=== PATIENT | male | born 1970 | race Caucasian/White ===

== ENCOUNTER 2020-01-18 16:51 | Emergency (ER) | payer SELFPAY ==
[~2020-01-18 16:51] MED LIST: Iopamidol-370 76% 500 ML 1 ML ONE
[2020-01-18 17:14] LABS: %Lymphocytes 26.5 % (21.0-51.0); %Monocytes 7.5 % (0.0-10.0); %Neutrophils 61.9 % (42.0-75.0); Hemoglobin 14.3 g/dL (14.0-18.0); Mean Corpuscular HGB CONC 33.1 g/dL (32.0-36.0); Mean Corpuscular Hemoglobin 30.1 pg (27.0-31.0); Mean Corpuscular Volume 90.8 fL (78.0-98.0); Mean Platelet Volume 7.1 fL (7.4-10.4); Platelet Count 350 thou/uL (130-400); RBC Distribution Width 12.8 % (11.5-14.5); Red Blood Cell (RBC) Count 4.75 mill/uL (4.70-6.10); White Blood Cell (WBC) Count 11.2 thou/uL (4.8-10.8)
[2020-01-18 17:15] LABS: #Basophils 0.1 thou/uL (0.0-0.2); #Eosinphils 0.4 thou/uL (0.0-0.7); #Monocytes 0.8 thou/uL (0.11-0.59); #Neutrophils 6.9 thou/uL (1.40-6.50); %Basophils 0.9 % (0.0-1.0); %Eosinophils 3.2 % (0.0-10.0)
[2020-01-18] MEDS ORDERED: Ondansetron PF 4 MG/2 ML Vial ONE (17:17)
[2020-01-18] MEDS ORDERED: Morphine 4 MG/ML VIAL ONE (17:17)
[2020-01-18 17:40] LABS: ALT (SGPT) 20 U/L (8-55); AST (SGOT) 14 U/L (5-34); Alkaline Phosphatase 112 U/L (40-110); Anion Gap 12 mmol/L (10-20); BUN (Urea Nitrogen) 21 mg/dL (8.9-20.6); Bilirubin, Total 0.4 mg/dL (0.2-1.2); Calc. Creatinine Clearance 0 mL/min (70-130); Calcium 8.8 mg/dL (7.8-10.44); Carbon Dioxide 27 mmol/L (22-29); Chloride 101 mmol/L (98-107); Estimated GFR-MDRD 77; Globulin 3.1 g/dL (2.4-3.5); Glucose 149 mg/dL (70-105); Potassium 4.2 mmol/L (3.5-5.1); Protein, Total 7.1 g/dL (6.0-8.3); Sodium 136 mmol/L (136-145)
--- NOTE | 2020-01-18 17:54 | CT ---
EXAM: CT ABDOMEN AND PELVIS HISTORY: Dominant pain COMPARISON: None. Procedure: Multiple contiguous axial images were obtained and a CT of the abdomen and pelvis with IV contrast. C oronal reformats were performed. FINDINGS: Lower Chest: Minimal scarring and atelectasis in the lower lobes and lingula Vessels: Normal caliber aorta. Heart: Normal heart size. No significant pericardial fluid Abdomen: Portal vein:Patent Gallbladder: No calcified gallstones. Normal caliber wall. Liver: Appropriate enhancement. Subcentimeter hypodensity in the hepatic dome, too small to character ize Pancreas: within normal limits. Spleen: within normal limits. Adrenals: within normal limits. Kidneys: 0.9 cm hypodensity in the right renal cortex, too small to characterize. Symmetric enhanceme nt of the kidneys. No evidence of enhancing solid mass. There is mild dilatation of the right intrarenal and extrarenal collecting system. There is mild periureteral fat stranding and enhancement of the ureter. No evidence of left-sided obstructive uropathy. Peritoneum: No ascites or free air, no fluid collection. Bowel: Limited evaluation due to the lack of oral contrast administration. No evidence of bowel obstr uction. Ileocecal junction is unremarkable. Normal caliber appendix. Scattered fecal material in a nondistended, nondilated colon. Moderate hiatal hernia. Mesentery and Retroperitoneum: No enlarged mesenteric or retroperitoneal lymph nodes. Abdominal Wall: within normal limits. Pelvis: Reproductive Organs: Reproductive organs are unremarkable. Pelvis: No mass, lymphadenopathy, free air or free fluid. Bladder: 0.4 cm calculus in the right aspect of the urinary bladder. Associated mucosal the posterior right aspect of the urinary bladder does appear to be somewhat prominent. Bones: within normal limits. IMPRESSION: 1. Mild right-sided obstructive uropathy secondary to a recently passed calculus which is now the rig ht aspect of the urinary bladder. 2. Asymmetric mild mucosal prominence of the posterior right aspect of the urinary bladder. Findings may be reactive secondary to recently passed calculus. Mucosal-based lesion cannot be excluded. Urology consultation and possible cystoscopy in the appropriate clinical setting.
[2020-01-18] MEDS ORDERED: Ketorolac Tromethamine 30 MG/ML VIAL ONE (18:01)
[2020-01-18 19:01] LABS: Bacteria/HPF None Seen HPF (None Seen); Bilirubin Negative (Negative); Blood, Urine 2+ (Negative); Clarity Clear (Clear); Glucose, Urine (Dipstick) Normal (Negative); Ketone, Urine Negative (Negative); Leukocyte Negative Leu/uL (Negative); Nitrite Negative (Negative); Protein, Urine (Dipstick) 10 mg/dL (Neg-Trace); RBC/HPF Greater than 50 HPF (0-3); Squamous Epithelial None Seen HPF (0-3); Urobilinogen Normal mg/dL (Less than 2); WBC/HPF 0-3 HPF (0-3); pH, Urine 5.5 (5.0-9.0)
[2020-01-18 19:04] LABS: Specific Gravity, Urine Greater than 1.060 (1.002-1.036)
== END 2020-01-18 20:26 | disposition home or self-care (01) ==
LOC: ERS 16:51
DX: N13.2 Hydronephrosis with renal and ureteral calculous obstruction (principal); F17.210 Nicotine dependence, cigarettes, uncomplicated
CPT/HCPCS: 74177; 80053; 81003; 81015; 83690; 85025; 96361; 96374; 96375; J1885; J2270; J2405; Q9967